=== PATIENT | male | born 1945 | race Caucasian/White ===

== ENCOUNTER 2020-03-20 14:03 | Outpatient (CLI) | payer MEDICARE, SELFPAY ==
--- NOTE | 2020-03-20 14:14 | US_ITS ---
WS: [id number] TESTICULAR ULTRASOUND HISTORY: HYDROCELE COMPARISON: None available. TECHNIQUE: Real-time and color Doppler imaging or utilized to perform a testicular ultrasound. Right testicle: 4.3 cm x 3.1 cm x 2.2 cm. Normal size and echogenicity. No mass or torsion. Normal color Doppler is present throughout. Systolic and diastolic velocities are both present. Small minimally complex hydrocele. Right epididymis: Epididymis is very mildly prominent. Left testicle: 4.1 cm x 3.0 cm x 2.9 cm. Normal size and echogenicity. No mass or torsion. Normal color Doppler is present throughout. Systolic and diastolic velocities are both present. Small minimally complex hydrocele. There are a few septations within the hydrocele. Left epididymis: Small spermatocele. US/US scrotum [id number] IMPRESSION: 1. Small minimally complex bilateral hydrocele. 2. No testicular mass or torsion. 3. Mildly prominent RIGHT epididymis without increased vascularity.
== END 2020-03-20 14:04 | disposition home or self-care (01) ==
LOC: RAD 14:08
PROVIDERS: Family Provider Family Medicine; Visit Provider Family Medicine
DX: N43.3 Hydrocele, unspecified (principal)
CPT/HCPCS: 76870

== ENCOUNTER → 2020-03-23 10:55 | Outpatient (BNVA) | payer MEDICARE, SELFPAY | PROVIDERS: Family Provider Family Medicine; Visit Provider Urology | DX: N40.0 Benign prostatic hyperplasia without lower urinary tract symptoms (principal); N45.1 Epididymitis; N43.3 Hydrocele, unspecified | CPT/HCPCS: 81001 ==

== ENCOUNTER → 2020-04-06 08:11 | Outpatient (BNVA) | payer MEDICARE, SELFPAY | PROVIDERS: Family Provider Family Medicine; PCP Family Medicine; Visit Provider Urology | DX: N45.1 Epididymitis (principal); N30.80 Other cystitis without hematuria; N43.3 Hydrocele, unspecified | CPT/HCPCS: 81001 ==

== ENCOUNTER → 2020-07-11 14:54 | Outpatient (BNVA) | payer MEDICARE, SELFPAY | PROVIDERS: Family Provider Family Medicine; PCP Family Medicine; Visit Provider Urology | DX: N45.1 Epididymitis (principal); N43.3 Hydrocele, unspecified; N50.82 Scrotal pain | CPT/HCPCS: 81001 ==

== ENCOUNTER → 2020-07-27 11:04 | Outpatient (BNVA) | payer MEDICARE, SELFPAY | PROVIDERS: Family Provider Family Medicine; PCP Family Medicine; Visit Provider Urology | DX: N45.1 Epididymitis (principal); N43.3 Hydrocele, unspecified; N50.82 Scrotal pain | CPT/HCPCS: 81001 ==

== ENCOUNTER → 2020-09-21 10:08 | Outpatient (BNVA) | payer MEDICARE, SELFPAY | PROVIDERS: Family Provider Family Medicine; PCP Family Medicine; Visit Provider Urology | DX: N45.1 Epididymitis (principal); N40.0 Benign prostatic hyperplasia without lower urinary tract symptoms; N40.1 Benign prostatic hyperplasia with lower urinary tract symptoms; N43.3 Hydrocele, unspecified; N50.82 Scrotal pain; Z12.5 Encounter for screening for malignant neoplasm of prostate | CPT/HCPCS: 81003; G0103 ==

== ENCOUNTER → 2020-10-30 08:21 | Outpatient (BNVA) | payer MEDICARE, SELFPAY | PROVIDERS: Family Provider Family Medicine; PCP Family Medicine; Visit Provider Urology | DX: N40.1 Benign prostatic hyperplasia with lower urinary tract symptoms (principal); K40.90 Unilateral inguinal hernia, without obstruction or gangrene, not specified as recurrent; N43.3 Hydrocele, unspecified | CPT/HCPCS: 81003 ==

== ENCOUNTER 2020-11-02 08:41 | Outpatient (CLI) | payer MEDICARE, SELFPAY | END 2020-11-02 08:42 | disposition home or self-care (01) | PROVIDERS: PCP Family Medicine; Visit Provider Urology | DX: Z01.818 Encounter for other preprocedural examination (principal) | CPT/HCPCS: 93005 ==

== ENCOUNTER → 2020-11-02 10:00 | Outpatient (BNVA) | payer MEDICARE, SELFPAY | PROVIDERS: PCP Family Medicine; Visit Provider Urology | DX: N40.1 Benign prostatic hyperplasia with lower urinary tract symptoms (principal) | CPT/HCPCS: 87635 ==

== ENCOUNTER 2020-11-08 14:28 | Observation (INO) | payer MEDICARE, SELFPAY ==
[2020-11-02 08:54] VITALS: BMI 27.8
--- NOTE | 2020-11-02 09:03 | ECG_ITS ---
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 Measurements Intervals [place] Rate: 68 P: 24 MT: 188 QRS: -18 QRSD: 117 T: 66 QT: 407 QTc: 433 Interpretive Statements SINUS RHYTHM INCOMPLETE RIGHT BUNDLE BRANCH BLOCK [90+ ms QRS DURATION, TERMINAL R IN V1/V2, 40+ ms S IN I/aVL/V4/V5/V6] No previous ECG available for comparison Electronically Signed On 11-02-2020 19:15:41 MEDICAID COLLECTION SPECIALIST by Mae Vincent M.D. [id number]
[2020-11-02 09:30] LABS: Basophils % 0.6 %; Eosinophils # 0.1 10^3/uL (0.0-0.8); Eosinophils % 1.7 %; Hematocrit 41.5 % (42.0-52.0); Hemoglobin 13.4 g/dL (11.7-16.6); Lymphocytes # 1.6 10^3/uL (0.8-4.8); Lymphocytes % 22.6 %; Mean Corpuscular HGB Conc 32.3 g/dL (30.0-36.0); Mean Corpuscular Hemoglobin 29.2 pg (28.0-34.0); Mean Corpuscular Volume 90.4 fL (80-94); Monocytes # 0.4 10^3/uL (0.2-0.9); Monocytes % 5.7 %; Neutrophils # 4.75 10^3/uL (1.8-7.7); Neutrophils % 69.1 %; Nucleated Red Blood Cells % 0 %; Platelet Count 228 10^3/cmm (130-400); Red Blood Count 4.59 10^6/uL (4.1-5.3); Red Cell Distribution Width 13.5 % (12.1-15.1); White Blood Count 6.9 10^3/uL (4.0-10.0)
--- NOTE | 2020-11-02 09:35 | ANES.PREANE2 ---
Pre-Anesthetic Assessment Pre-Anesthetic Assessment: Height/Weight: Height 1.96 m Weight 106.594 kg Preop Diagnosis: Benign large prostate. BPH with obstruction Proposed Procedure: Operation Date: 11/08/20 12:00 Proposed Procedures p Transurethral Resection Of Prostate/ Vaporization of prostate 48000 N40.1(Not Applicable) - Denilson Agrawal MD s Cystoscopy(Not Applicable) - Denilson Agrawal MD Familial anesthetic complications: None Social: Social History: No alcohol and No tobacco Exam: Pre-Anes Outpt Exam: alert, oriented x 3, clear to auscultation bilaterally and regular rate & rhythm Airway: Cervical ROM: WNL MP: 1 Dentition: Other (missing teeth) CV/HEM: CV/HEM: HTN : Comments: L renal cancer s/p removal Metabolic: Metabolic: Hyperlipidemia Anesthetic Plan: ASA status: 2 Anesthesia: General Risk of > 500 ml blood loss (7ml/kg in children): No PFSH Anesthesia PFSH: Medical History (Updated 10/30/20 @ 08:49 by Denilson Agrawal MD) BPH (benign prostatic hyperplasia) Epididymitis HTN (hypertension) Hx of renal cell cancer Hyperlipidemia Left hydrocele Right inguinal hernia Surgical History History of left nephrectomy Hx of shoulder replacement Family History Mother , at age 86 Cancer ovarian cancer Father , at age 52 Heart attack Social History Smoking and tobacco status: never smoked Alcohol intake: unknown Adopted: No Caregiver/support person: No Lives independently: No Household members: spouse Marital status: Current occupational status: retired History of recent travel: No Data Anesthesia CBC & Chem 7: 11/02/20 09:07 11/02/20 09:07 Other Labs: Laboratory Results - last 48 hr 11/02/20 09:07 WBC 6.9 RBC 4.59 Hgb 13.4 Hct 41.5 L MCV 90.4 MCH 29.2 MCHC 32.3 RDW 13.5 Plt Count 228 MPV 10.0 Neut % (Auto) 69.1 Lymph % (Auto) 22.6 [place] % (Auto) 5.7 Eos % (Auto) 1.7 Baso % (Auto) 0.6 Neut # (Auto) 4.75 Lymph # (Auto) 1.6 [place] # (Auto) 0.4 Eos # (Auto) 0.1 Baso # (Auto) 0.0 Nucleated RBC % (auto) 0 Nucleated RBCs # 0.0 Cardiac Studies: No Data to Display
[2020-11-02 09:48] LABS: Alanine Aminotransferase 21 U/L (0-41); Albumin Level 3.7 g/dL (3.5-5.2); Alkaline Phosphatase 82 IU/L (40-130); Anion Gap 10.1 (5-19); Aspartate Amino Transferase 20 U/L (0-40); Blood Urea Nitrogen 18 mg/dL (8-23); Calcium 8.9 mg/dL (8.5-10.5); Carbon Dioxide 30 mmol/L (22-29); Chloride 103 mmol/L (98-107); Globulin 2.8 g/dL (1.3-4.6); Glucose 97 mg/dL (65-115); Osmolality Calculated 290 mOsm/kg (285-295); Potassium 4.1 mmol/L (3.5-5.1); Sodium 139 mmol/L (136-145); Total Bilirubin 0.4 mg/dL (0.15-1.2); Total Protein 6.5 g/dL (6.6-8.7)
[2020-11-08] VITALS (15 sets, daily range): BP systolic 126–171; BP diastolic 69–91; PULSE 60–88; RESP 16–18; TEMP 35.7–37; O2SAT 91–99
[2020-11-08] MEDS: sodium chloride 0.9% 1,000 ML 30 ML IV (11:01)
--- NOTE | 2020-11-08 12:24 | P.HPUD_ITS ---
Surgery/Procedure H&P Update DATE OF PROCEDURE: November 08, 2020 DATE H&P PERFORMED: 10/30/20 H&P UPDATE INFORMATION: I have reviewed H&P completed within last 30 days, I have examined patient prior to procedure, No changes to prior documentation and H&P is in [facility] EMR on date indicated CHANGES TO PREVIOUS DOCUMENTATION: I had an opportunity to review the procedure in detail with his who is very attentive to such detail. She seemed c ontent with my explanation and answers. PREOP DIAGNOSIS: Benign large prostate. BPH with obstruction PLANNED PROCEDURE: Operation Date: 11/08/20 12:00 Proposed Procedures p Transurethral Resection Of Prostate/ Vaporization of prostate 44917 N40.1(Not Applicable) - Denilson Agrawal MD s Cystoscopy(Not Applicable) - Denilson Agrawal MD
[2020-11-08] MEDS: levofloxacin-dextrose 5 % 500 MG/100 ML PREMIX 100 MG IV (12:25)
--- NOTE | 2020-11-08 12:30 | P.ANESUD_ITS ---
Pre-Anesthetic Update Pre-Anesthetic Assessment: Date of Surgery/Procedure: 11/08/20 Preop Sapphire gnosis: Benign large prostate. BPH with obstruction Proposed Procedure: Operation Date: 11/08/20 12:00 Proposed Procedures p Transurethral Resection Of Prostate/ Vaporization of prostate 67670 N40.1(Not Applicable) - Denilson Agrawal MD s Cystoscopy(Not Applicable) - Denilson Agrawal MD Any changes to Pre-Anesthetic Assessment?: No Last Intake: Intake Last Liquid Date 11/07/20 Last Liquid Time 20:00 Last Solid Date 11/07/20 Last Solid Time 20:00 Vitals: Temperature 97.4 F L 11/08/20 10:48 Temperature Source Temporal Artery S can 11/08/20 10:48 Pulse Rate 62 11/08/20 10:48 Pulse Rhythm 11/08/20 10:52 Pulse Strength 3+ Normal 11/08/20 10:52 Respiratory Rate 18 11/08/20 10:48 Blood Pressure 171/91 11/08/20 10:48 Blood Pressure Dorothy n 117 11/08/20 10:48 Pulse Oximetry 99 11/08/20 10:48 Oxygen Delivery Me thod 11/08/20 10:52 Exam: Pre-Anes Outpt Exam: alert, oriented x 3, clear to auscultation bilate rally and regular rate & rhythm Cardiac Studies: No Data to Display
[2020-11-08] MEDS: lidocaine 2% Urojet 20 mL (12:53)
--- NOTE | 2020-11-08 14:07 | PM.OP ---
Operative Report Date of procedure: November 08, 2020 Pre-op Diagnosis: Benign large prostate. BPH with obstruction Post-op diagnosis: same Procedure Done: Cystoscopy, and transurethral resection/vaporization of the prostate Pathology: Patient Service Representative prostate chips Surgeon: Tanja Anesthesia: General Estimated blood loss: Less than 50 cc Urine output: Not measured Complications: None Findings: Primarily lateral lobe hypertrophy with moderate trabeculated bladder. Orifices well away from the bladder neck. Wide open at the completion of the procedure with excellent hemostasis. Condition: stable Disposition: PACU Brief History: Mr. Forrester is a delightful 75-year-old white male with a longstanding history of progressive bladder outlet obstructive symptoms. Persisted with near retention while on medical therapy. Ultimately chose transurethral resection/vaporization of the prostate with hopes of improving his baseline voiding and getting off the medication (tamsulosin). Admitted for that procedure. Procedure: After routine preoperative evaluation examination and obtaining of informed consent he was taken to the operating suite on 11/08/2020 where general anesthesia was administered without difficulty after appropriate timeout was performed, SCDs confirmed to be functioning, preoperative antibiotics administered, beta-theodore protocol confirmed. Prepped and draped in usual sterile fashion in dorsolithotomy position paying careful attention to avoiding pressure points. 21 Armenian cystoscope with 30 degree lens was introduced into the urethral meatus and advanced into the bladder under videoscopy. Bladder was systematically examined and found to be within normal limits regarding mucosa. He did showed bilateral lateral lobe hypertrophy without a significant amount of median lobe tissue. Bladder was moderately trabeculated. Orifices were well away from the bladder neck. Verumontanum was easily identified. The urethra was then calibrated with Kris sounds and easily accommodated 30 Armenian. 2% lidocaine jelly was instilled into the urethra then a 25 Armenian continuous-flow resectoscope sheath with visual obturator in place was advanced into the bladder without difficulty. The gyrus bipolar system was utilized initially with the supersect loop. Landmarks were again ascertained. Resection was begun at the bladder neck and circumferentially performed removing what intravesical protrusion of the prostate existed. The left lateral lobe was then resected from the 12 o'clock position to the 5 o'clock position from the bladder neck to the distal aspect of the prostate at the level of the verumontanum. The resection was conducted deeply into the prostate tissue. Hemostasis was obtained with resection. Resection was then directed from the 12 o'clock position to the 7 o'clock position of the same longitudinal extent and depth. The floor the prostate was then resected. The button probe was then utilized to complete the removal of tissue by vaporization technique. At least 50% of the prostatic tissue was vaporized. There remains some apical tissue at the level of the verumontanum and this was carefully vaporized avoiding straining distal to the verumontanum. All chips were evacuated from the bladder. The prostate was further sculpted as needed to allow smooth widely patent fossa. On final inspection all chips were removed from the bladder, the ureteral orifices were uninvolved in the resection, and the tissue distal to the verumontanum was undisturbed. Bladder was drained with a 20 Armenian three-way Wheat catheter with 30 cc in the balloon and light CBI was initiated with very low flow to maintain clarity. Tolerated the procedure well without complications. Awakened in the operating room and returned to the recovery in stable condition. PLANS: 1. Anticipate discharge tomorrow after voiding trial. Catheter placement as needed. 2. Should be able to wean CBI off today.
--- NOTE | 2020-11-08 14:19 | SUR.PHASEI ---
PT AWAKE ALERT ON ARRIVAL, GOOD RESP EFFORT VSS MUHAMMAD TO CBI AT MOD RATE AND YELLOW CLEAR URINE NOTED IN TUBING AND BAG, BILAT SCDS ON PT . PT VERBALLY DENIES PAIN AND NAUSEA,
[2020-11-08] MEDS: acetaminophen 325 mg Tablet 650 MG PO (15:41)
[2020-11-08] MEDS: gabapentin 300 mg Capsule PO ×2 (15:42→20:32)
[2020-11-08] MEDS: D5-NS 0.45% + KCL 20 mEq 20 MEQ/1,000 ML BAG 50 MEQ IV (15:47)
--- NOTE | 2020-11-08 16:22 | ANE.PACU2 ---
Inpatient post-anesthesia follow up: Airway intact: Yes Vital signs: Temperature 96.7 F Pulse Rate 67 Respiratory Rate 16 Blood Pressure 170/84 Pulse Oximetry 91 Oxygen Delivery Me thod [ Room Air Current Rate & Del humberto] Oxygen Delivery Me thod Room Air Oxygen Flow Rate 8 Fraction of Inspir ed Oxygen Hydration adequate: Yes Nausea and vomiting: No Pain level: 2 Mental status: Baseline
[2020-11-08] MEDS: docusate sodium 100 mg Capsule PO (17:07)
[2020-11-08] MEDS: lisinopril 10 mg Tablet PO (17:08)
[2020-11-09 04:00] VITALS: BP 151/79; PULSE 63; RESP 18; TEMP 36.6; O2SAT 94
[2020-11-09] MEDS: levoFLOXacin 500 mg Tablet PO (06:15)
[2020-11-09 07:03] VITALS: BP 143/77; PULSE 67; RESP 20; TEMP 36.9; O2SAT 93
--- NOTE | 2020-11-09 07:32 | PC.NURSE ---
Report to Maureen RUBIO
--- NOTE | 2020-11-09 07:41 | P.DS_ITS ---
Discharge Providers Date of Admission: 11/08/20 14:28 Date of Discharge: November 09, 2020 Attending Provider at Admission: Denilson Agrawal MD Attending Provider at Discharge: Denilson Agrawal MD Primary Care Provider: Shekhar Salazar Jr, MD Diagnoses at Discharge Discharge Diagnosis (1) BPH loc w urin obs/LUTS: Status: Acute (2) Postoperative urinary retention: Status: Acute Reason for Visit Reason for Visit: Benign prostatic hyperplasia N40.1 Hospital Course Hospital Course Mr. Forrester was admitted for refractory BPH/obstruction on dual medical therapy. Surgery was performed on the day of admission which went very well. His postoperative course was unremarkable. He was maintained on very light CBI immediately postop but that was weaned off quickly. On postoperative day #1 the Wheat catheter was removed and he voided spontaneously with clearing urine initially but with declining output over the morning. In and out catheter was performed a couple times with large postvoid residuals and for that reason a Wheat catheter was replaced. Was discharged on the afternoon of postoperative day #1 with Wheat catheter in place draining clear urine. Scheduled for voiding trial in my office on 11/13/2020 or 11/14/2020. Explained drainage bag management. He was instructed to call if he had any concerns or questions postoperatively. Physical Exam Const: COMMON NORMALS: no acute distress, alert and well nourished GENERAL APPEARANCE: well kempt and well developed ORIENTATION/CONSCIOUSNESS: not confused Neck/C-Spine: COMMON NORMALS: full ROM Resp: COMMON NORMALS: normal respiratory effort EFFORT & INSPECTION: No labored and No Actively coughing : OTHER: Urine clear yellow with CBI off. Neuro: COMMON NORMALS: no focal motor deficits SENSORIUM/ORIENTATION: Yes alert Psych: COMMON NORMALS: mental status grossly normal APPEARANCE: Yes grossly normal and Yes well kempt ATTITUDE: Yes calm and Yes engaged Urinary Catheter Management^: 3-way Urethral CBI: Cath Placed During This Visit: yes Reason for Continuing Indwelling Catheter: Acute Urinary Retention or Obstruction Urinary Catheter Date of Insertion: 11/08/20 Urinary Catheter Time of Insertion: 13:57 Discharge Data Data Completed and Pending: Pending at discharge Category Date Time Status Pathology: Surgic al [PTH] Routine Pth 11/08/20 13:56 Ordered Vitals: Last Vital Signs Temp 98.4 F 11/09/20 07:03 Pulse 67 11/09/20 07:03 Resp 20 H 11/09/20 07:03 BP 143/77 11/09/20 07:03 Pulse Ox 93 11/09/20 07:03 Discharge Plan Discharge Patient Disposition: Home Condition: Stable Prescriptions: New levofloxacin 250 mg tablet 250 mg PO DAILY Qty: 5 RF: 0 Continued atorvastatin 80 mg tablet 80 mg PO DAILY RF: 0 finasteride 5 mg tablet 5 mg PO DAILY RF: 0 gabapentin 300 mg capsule 300 mg PO TID RF: 0 lisinopril 10 mg tablet 10 mg PO BID RF: 0 cabozantinib 20 mg tablet 20 mg PO DAILY RF: 0 tamsulosin 0.4 mg capsule 0.4 mg PO .2 at bedtime RF: 0 prednisolone 5 mg tablet 5 mg PO BID RF: 0 calcium phosphate-vitamin D3 250 mg calcium- 350 unit tablet,chewable 1 tab PO DAILY RF: 0 Discontinued dutasteride [Avodart] 0.5 mg capsule 0.5 mg PO DAILY RF: 0 Discharge Orders: Discharge Order (Routine); Ordered 11/09/20 Ordered By: Denilson Agrawal Referrals: Denilson Agrawal MD [Physician] - 12/24/20 8:00 am (Postop check. Flow rate, PVR, AUA symptom score.) Discharge Diet: Usual diet Discharge Activity: Limit activity as instructed Patient Instructions: Levofloxacin (By mouth), TURP Activity Restrictions/Additional Instructions: 1. Avoid lifting >10 pounds for least 3 weeks. 2. Can take [id number] AZO-STANDARD as needed for burning. 3. Please call if you have any concerns or questions. The hospital computer numerical control operator can reach me after hours if there are any concerns. Discharge Attestations Time Spent in Discharge Care*: less than 30 min Quality Metrics Clinical Quality Measures During this hospital stay, did patient experience: None Coding Level of Care Code Acute Business Area Director for Chg Fwd Exam Detailed Diagnoses BPH loc w urin obs/LUTS N40.1 Postoperative urinary retention N99.89; R33.8
[2020-11-09] MEDS: atorvastatin 40 mg Tablet 80 MG PO (10:10)
[2020-11-09] MEDS: finasteride 5 mg Tablet PO (10:10)
[2020-11-09] MEDS: docusate sodium 100 mg Capsule PO (10:10)
[2020-11-09] MEDS: gabapentin 300 mg Capsule PO ×2 (10:11→16:20)
[2020-11-09] MEDS: lisinopril 10 mg Tablet PO (10:12)
[2020-11-09 11:07] VITALS: BP 190/92; PULSE 74; RESP 18; TEMP 37.1; O2SAT 97
[2020-11-09] MEDS: D5-NS 0.45% + KCL 20 mEq 20 MEQ/1,000 ML BAG 50 MEQ IV (11:07)
--- NOTE | 2020-11-09 12:59 | PC.CHAP ---
Pastoral Care Encounter/Spiritual Assessment Type of Contact [] Declined decorative cutting machine tender visit [] Patient/Family/Request visit [] Outpatient visit [] Follow-up visit [] Physician referral [] Code/Alert [] Routine visit [] Staff referral [] Actively dying [] Patient sleeping [] Family support [] [] Out of room [] Palliative care [] [xx] Receiving care in room [] Pre-surgical visit [] Trauma [] Long length of stay [] ICU visit [xx] Other: Follow up needed Relational/Emotional Strength [] Patient feels connected with others/family/visitors/staff [] Distress [] Loneliness/isolation [] Abandonment Spirituality of Patient [] Person of Diana [] Attends Mosque of their Diana [] Believes in Prayer [] Reads Bible or Roman Catholic materials [] There are Spiritual issues to be addressed Fairground Operator Interventions [] Prayer [] Active listening [] Non-anxious presence [] Spiritual/emotional support [] Crisis/trauma care [] Spiritual counseling [] Bereavement support [] Provided bereavement packet [] Provided Bible/devotional materials [] Provided toy/stuffed animal, coloring book to patient or family member [] Provided Communion [] Anointing/[place] [] Salvation [] Completed spiritual assessment [] Other: Impact on Illness or Injury [] Angry [] Fearful [] Anxious [] Often cries [] Exhaustion [] Unable to work [] Unable to attend evangelical [] Unable to walk/stand [] Unable to read [] Unable to drive [] Unable to eat/drink [] Unable to sleep [] Unable to be with family [] Patient intubated [] Other: Summary Patient involved in medical treatments that would keep him busy for some time. Fairground Operator attempted visit at beginning and ending of round but could not follow through. Recommend further follow up. Time spent with patient 4 minutes total
[2020-11-09 13:33] VITALS: PULSE 68; O2SAT 97
[2020-11-09 16:00] VITALS: BP 172/86; PULSE 82; RESP 18; TEMP 37.6; O2SAT 92
--- NOTE | 2020-11-09 17:10 | PC.NURSE ---
IV d/c'd, cath intact. bleeding was controlled with 2x2 and coban. patient and were educated on leg and bed bag for velásquez. discharge instructions were discussed with , Mrs. Forrester verbalized understanding. patient and were escorted out of the building and into a private vehicle into the care of the .
[2020-11-09 17:15] VITALS: BP 172/86; PULSE 82; RESP 18; TEMP 37.6; O2SAT 92
== END 2020-11-09 16:30 | disposition home or self-care (01) ==
LOC: MEDSURG 14:29
PROVIDERS: Admitting Provider Urology; PCP Family Medicine; Visit Provider Urology
PROC: 0VT08ZZ Resection of Prostate, Via Natural or Artificial Opening Endoscopic (ICD-10-PCS; CPT 52601; principal; 2020-11-08 12:00)
PROC: 0TJB8ZZ Inspection of Bladder, Via Natural or Artificial Opening Endoscopic (ICD-10-PCS; CPT 52000; 2020-11-08 12:00)
DX: N40.1 Benign prostatic hyperplasia with lower urinary tract symptoms (principal); N13.8 Other obstructive and reflux uropathy; R33.8 Other retention of urine; I10 Essential (primary) hypertension; E78.5 Hyperlipidemia, unspecified; Z85.528 Personal history of other malignant neoplasm of kidney; Z90.5 Acquired absence of kidney
CPT/HCPCS: 52601; 12345; 36415; 51702; 51798; 80053; 85025; 88305; G0378; J1956; J2405; J2704; J2710; J3010; J3490; J7030

== ENCOUNTER → 2020-12-26 13:47 | Outpatient (BNVA) | payer MEDICARE, SELFPAY | PROVIDERS: PCP Internal Medicine; Visit Provider Urology | DX: N40.1 Benign prostatic hyperplasia with lower urinary tract symptoms (principal); N43.3 Hydrocele, unspecified; R30.0 Dysuria; N39.41 Urge incontinence | CPT/HCPCS: 81003 ==

== ENCOUNTER → 2021-02-11 11:17 | Outpatient (BNVA) | payer MEDICARE, SELFPAY | PROVIDERS: PCP Internal Medicine; Visit Provider Urology | DX: N40.1 Benign prostatic hyperplasia with lower urinary tract symptoms (principal) | CPT/HCPCS: 81003 ==

== ENCOUNTER 2021-08-01 06:00 | Outpatient (RCR) | payer MEDICARE, SELFPAY | END 2021-08-11 23:59 | disposition home or self-care (01) | LOC: MPT 06:00 | PROVIDERS: PCP Internal Medicine; Referring Provider Physician Assistant Surgical; Visit Provider Physician Assistant Surgical | DX: Z47.1 Aftercare following joint replacement surgery (principal); Z96.641 Presence of right artificial hip joint | CPT/HCPCS: 97110; 97116; 97162 ==

== ENCOUNTER 2021-08-12 06:00 | Outpatient (RCR) | payer MEDICARE, SELFPAY | END 2021-09-10 23:59 | disposition home or self-care (01) | LOC: MOT 06:00 | PROVIDERS: PCP Internal Medicine; Visit Provider Physician Assistant Surgical | DX: E78.5 Hyperlipidemia, unspecified (principal) | CPT/HCPCS: 97140; 97166 ==

== ENCOUNTER 2021-08-12 06:00 | Outpatient (RCR) | payer MEDICARE, SELFPAY | END 2021-09-10 23:59 | disposition home or self-care (01) | LOC: MPT 06:00 | PROVIDERS: PCP Internal Medicine; Referring Provider Physician Assistant Surgical; Visit Provider Physician Assistant Surgical | DX: Z47.1 Aftercare following joint replacement surgery (principal); Z96.641 Presence of right artificial hip joint | CPT/HCPCS: 97110; 97112; 97116 ==

== ENCOUNTER → 2021-08-14 10:26 | Outpatient (BNVA) | payer MEDICARE, SELFPAY | PROVIDERS: PCP Internal Medicine; Visit Provider Urology | DX: N40.1 Benign prostatic hyperplasia with lower urinary tract symptoms (principal); N43.3 Hydrocele, unspecified | CPT/HCPCS: 81003 ==

== ENCOUNTER 2021-09-11 08:38 | Outpatient (RCR) | payer MEDICARE, SELFPAY | END 2021-10-11 23:59 | disposition home or self-care (01) | LOC: MPT 08:38 | PROVIDERS: PCP Internal Medicine; Referring Provider Physician Assistant Surgical; Visit Provider Physician Assistant Surgical | DX: E78.5 Hyperlipidemia, unspecified (principal) | CPT/HCPCS: 97110; 97112; 97116 ==

== ENCOUNTER 2021-10-12 06:00 | Outpatient (RCR) | payer MEDICARE, SELFPAY | END 2021-11-11 23:59 | disposition home or self-care (01) | LOC: MPT 06:00 | PROVIDERS: PCP Internal Medicine; Referring Provider Physician Assistant Surgical; Visit Provider Physician Assistant Surgical | DX: E78.5 Hyperlipidemia, unspecified (principal) | CPT/HCPCS: 97110; 97112 ==

== ENCOUNTER 2021-11-12 06:00 | Outpatient (RCR) | payer MEDICARE, SELFPAY | END 2021-12-09 23:59 | disposition home or self-care (01) | LOC: MPT 06:00 | PROVIDERS: PCP Internal Medicine; Referring Provider Physician Assistant Surgical; Visit Provider Physician Assistant Surgical | DX: E78.5 Hyperlipidemia, unspecified (principal) | CPT/HCPCS: 97110 ==

== ENCOUNTER 2023-02-06 09:11 | Oncology outpatient (recurring) (ONCR) | payer MEDICARE, SELFPAY ==
--- NOTE | 2023-01-12 14:23 | N.ONRAD NP_ITS ---
Radiation Oncology Consultation Patient Name: Sameer Forrester Date of : 1945 Date of Service: 01/12/2023 Attending Physician: Joss Love M.D. Sameer Forrester was seen in consultation this morning at the request of [facility] in [place], [place] for consideration of palliative radiotherapy in the management of metastatic renal cell carcinoma. 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 Thoracic metastatic disease was radiographically identified and confirmed following an 11R lymph node biopsy in October 2017. He was enrolled on Checkmate 9ER trial. In January of 2022, he reported progressive back pain. A thoracic and lumbar spine MRI identified a T12 lesion. A radiofrequency ablation with vertebral augmentation was performed for tissue diagnosis. Metastatic renal cell carcinoma was confirmed. A lumbar MRI scan obtained in November described new enhancing lesion within the L2 vertebral body. He reported right thigh pain. A radiograph the right femur described an eccentric lytic lesion with cortical destruction in the mid diaphysis measuring 6.8 cm x 2.5 cm. An open reduction internal fixation was performed by Royer Jackson M.D. at [facility] on December 10, 2022. Bone and soft tissue submitted from the procedure was consistent with metastatic renal cell carcinoma. He was referred for palliative radiotherapy. I discussed with Mr. Forrester the role for palliative radiation in the context of metastatic disease. I would recommend a 1-week course of radiation therapy. A CT scan will be acquired for radiotherapy planning prior to beginning treatment to delineate the clinical target volume. The potential toxicities of radiotherapy were reviewed. The patient has verbalized understanding would like to proceed as recommended. Signed by: Joss Love 01/12/2023 2:29:01 PM
--- NOTE | 2023-01-15 | CT_ITS ---
Radiation Therapy Planning CT images; total exam DLP: 1229.74 mGy-cm MTDD
--- NOTE | 2023-01-23 09:36 | N.ONRD TS_ITS ---
Radiation OncologyTreatment Summary Patient Name: Sameer Forrester Date of : 1945 Date of Service: 01/23/2023 Attending Physician: Joss Love M.D. Sameer Forrester has completed palliative radiotherapy for the management of metastatic renal cell carcinoma. 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 Thoracic metastatic disease was radiographically identified and confirmed following an 11R lymph node biopsy in October 2017. He was enrolled on Checkmate 9 trial. In January of 2022, he reported progressive back pain. A thoracic and lumbar spine MRI identified a T12 lesion. A radiofrequency ablation with vertebral augmentation was performed for tissue diagnosis. Metastatic renal cell carcinoma was confirmed. A lumbar MRI scan obtained in November described new enhancing lesion within the L2 vertebral body. He reported right thigh pain. A radiograph the right femur described an eccentric lytic lesion with cortical destruction in the mid diaphysis measuring 6.8 cm x 2.5 cm. An open reduction internal fixation was performed by Royer Jackson M.D. at [facility] on December 10, 2022. Bone and soft tissue submitted from the procedure was consistent with metastatic renal cell carcinoma. Daily radiotherapy was administered between the dates January 19, 2023 through January 23, 2023. A prescribed dose of 20 Gy was delivered in 5 fractions encompassing 5 elapsed days. The right femur was treated utilizing a 3-dimensional conformal radiotherapy plan with an AP/PA field design. The AP port utilized a gantry angle of 0??? with a collimator rotation of 0???. The field size measured 4.5 cm x 4.5 cm within the X-direction and 18.5 cm 18.5 cm within the Y-direction. The SSD measured 93.7 cm. The port delivered 234 monitor units. The A field was designed with a gantry angle of 180??? and a collimator rotation of 0???. The field measured 4.5 cm x 4.5 cm within the X-direction of 18.5 cm x 18.5 cm within the Y-direction. The measured SSD was 91.2 cm. The field allocated 253 monitor units. All treatments were performed with the Zopa linear accelerator and an isocentric technique. The dose was calculated by Anisotropic Analytic Algorithm. A photon energy of 6 MV was prescribed with the plan normalized to deliver 100% of the prescription dose to 95% of the planning target volume. Signed by: Joss Love 01/23/2023 9:35:17 AM
--- NOTE | 2023-01-23 09:54 | ONCRAD TMN_ITS ---
Radiation Oncology Treatment Management Note Patient Name: Sameer Forrester Date of : 1945 Date of Service: 01/23/2023 Attending Physician: Joss Love M.D. Sameer Forrester is a 77 year-old white male of diagnosed with metastatic renal cell carcinoma. 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 Thoracic metastatic disease was radiographically identified and confirmed following an 11R lymph node biopsy in October 2017. He was enrolled on Checkmate 9ER trial. In January of 2022, he reported progressive back pain. A thoracic and lumbar spine MRI identified a T12 lesion. A radiofrequency ablation with vertebral augmentation was performed for tissue diagnosis. Metastatic renal cell carcinoma was confirmed. A lumbar MRI scan obtained in November described a new enhancing lesion within the L2 vertebral body. He reported right thigh pain. A radiograph the right femur described an eccentric lytic lesion with cortical destruction in the mid diaphysis measuring 6.8 cm x 2.5 cm. An open reduction internal fixation was performed by Royer Jackson M.D. at [facility] on December 10, 2022. Bone and soft tissue submitted from the procedure was consistent with metastatic renal cell carcinoma. The patient has received 20 Gy of a prescribed 20 [place] to the right femur with a 3-dimensional conformal radiotherapy plan utilizing AP/PA treatment wiggins. Upon review of systems, he described back pain. On physical examination, the patient weighed 216 lbs. His temperature was 96.3 ???F and the blood pressure was 136/71 mmHg. His pulse was 73 bpm and his respiratory rate was 18. Palliative radiotherapy concluded today. Signed by: Joss Love 01/23/2023 9:53:02 AM
--- NOTE | 2023-01-27 | CT_ITS ---
Radiation Therapy Planning CT images; total exam DLP: 1000.34 mGy-cm MTDD
--- NOTE | 2023-02-06 09:16 | N.ONRD TS_ITS ---
Radiation OncologyTreatment Summary Patient Name: Sameer Forrester Date of : 1945 Date of Service: 02/06/2023 Attending Physician: Joss Love M.D. Sameer Forrester has completed palliative radiotherapy for the management of metastatic renal cell carcinoma. 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 Thoracic metastatic disease was radiographically identified and confirmed following an 11R lymph node biopsy in October 2017. He was enrolled on Checkmate 9 trial. In January of 2022, he reported progressive back pain. A thoracic MRI identified a T12 lesion. A radiofrequency ablation with vertebral augmentation was performed for tissue diagnosis. Metastatic renal cell carcinoma was confirmed. A lumbar MRI scan obtained in November described a new enhancing lesion within the L2 vertebral body. He reported right thigh pain. A radiograph the right femur described an eccentric lytic lesion with cortical destruction in the mid diaphysis measuring 6.8 cm x 2.5 cm. An open reduction internal fixation was performed by Royer Jackson M.D. at [facility] on December 10, 2022. Bone and soft tissue submitted from the procedure was consistent with metastatic renal cell carcinoma. Daily radiotherapy was administered between the dates of February 02, 2023 through February 06, 2023. A prescribed dose of 20 Gy was delivered in 5 fractions encompassing 7 elapsed days. The L2 vertebral body was treated utilizing a 3-dimensional conformal radiotherapy plan with AP/PA wiggins and a right lateral port. The AP field utilized a 0??? gantry angle with a collimator angle of 0???. The field size measured 5 cm x 5 cm within the X-direction and 5 cm x 5 cm within the Y-direction. The SSD measured 82.3 cm with the field delivering 227 monitor units. The PA port employed a gantry angle of 180??? and a collimator angle of 0???. The field size spanned 5 cm x 5 cm within X-direction and 5 cm x 5 cm within the Y-direction. The measured SSD was 92.7 cm with the field allocating 279 monitor units. All treatments were performed with the [employer] linear accelerator and an isocentric technique. The dose was calculated by Anisotropic Analytic Algorithm. A photon energy of 15 MV was prescribed with the plan normalized to deliver 100% of the prescription dose to 100% of the planning target volume. Signed by: Joss Love 02/06/2023 9:15:45 AM
--- NOTE | 2023-02-06 09:52 | ONCRAD TMN_ITS ---
Radiation Oncology Treatment Management Note Patient Name: Sameer Forrester Date of : 1945 Date of Service: 02/06/2023 Attending Physician: Joss Love M.D. Sameer Forrester is a 77 year-old white male of diagnosed with metastatic renal cell carcinoma. 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 Thoracic metastatic disease was radiographically identified and confirmed following an 11R lymph node biopsy in October 2017. He was enrolled on Checkmate 9ER trial. In January of 2022, he reported progressive back pain. A thoracic MRI identified a T12 lesion. A radiofrequency ablation with vertebral augmentation was performed for tissue diagnosis. Metastatic renal cell carcinoma was confirmed. A lumbar MRI scan obtained in November described a new enhancing lesion within the L2 vertebral body. He reported right thigh pain. A radiograph the right femur described an eccentric lytic lesion with cortical destruction in the mid diaphysis measuring 6.8 cm x 2.5 cm. An open reduction internal fixation was performed by Royer Jackson M.D. at [facility] on December 10, 2022. Bone and soft tissue submitted from the procedure was consistent with metastatic renal cell carcinoma. The patient has received 20 Gy of a prescribed 20 [place] to the L2 vertebral body with a 3-dimensional conformal radiotherapy plan utilizing AP/PA treatment wiggins. Upon review of systems, his pain has improved. On physical examination, the patient weighed 217 lbs. His temperature was 97.1 ???F and the blood pressure was 130/77 mmHg. His pulse was 60 bpm and his respiratory rate was 18. Palliative radiotherapy completed today. Signed by: Joss Love 02/06/2023 9:50:35 AM
== END 2023-02-08 23:59 | disposition home or self-care (01) ==
PROVIDERS: PCP Internal Medicine; Visit Provider Radiology Radiation Oncology
DX: Z51.0 Encounter for antineoplastic radiation therapy (principal); C64.1 Malignant neoplasm of right kidney, except renal pelvis; C79.51 Secondary malignant neoplasm of bone; Z87.891 Personal history of nicotine dependence
CPT/HCPCS: 77280; 77290; 77295; 77300; 77307; 77334; 77336; 77387; 77412; 99024; 99205

== ENCOUNTER 2023-02-10 13:03 | Oncology outpatient (recurring) (ONCR) | payer MEDICARE, SELFPAY ==
--- NOTE | 2023-02-10 | CT_ITS ---
Radiation Therapy Planning CT images; total exam DLP: 187.01 mGy-cm MTDD
--- NOTE | 2023-02-10 14:20 | N.ONRD TS_ITS ---
Radiation OncologyTreatment Summary Patient Name: Sameer Forrester Date of : 1945 Date of Service: 02/10/2023 Attending Physician: Joss Love M.D. Sameer Forrester has completed palliative radiotherapy for the metastatic renal cell carcinoma. 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 Thoracic metastatic disease was radiographically identified and confirmed following an 11R lymph node biopsy in October 2017. He was enrolled on Checkmate 9 trial. In January of 2022, he reported progressive back pain. A thoracic MRI identified a T12 lesion. A radiofrequency ablation with vertebral augmentation was performed for tissue diagnosis. Metastatic renal cell carcinoma was confirmed. A lumbar MRI scan obtained in November 2022 described a new enhancing lesion within the L2 vertebral body. He reported right thigh pain. A radiograph of the right femur ordered in November described an eccentric lytic lesion with cortical destruction in the mid diaphysis measuring 6.8 cm x 2.5 cm. An open reduction internal fixation was performed by Royer Jackson M.D. at [facility] on December 10, 2022. Bone and soft tissue submitted from the procedure was consistent with metastatic renal cell carcinoma. Daily radiotherapy was administered to the right femur between the dates January 19, 2023 through January 23, 2023. A prescribed dose of 20 Gy was delivered in 5 fractions encompassing 5 elapsed days. Radiotherapy was administered to the L2 vertebral body between the dates of February 02, 2023 through February 06, 2023. A prescribed dose of 20 Gy was delivered in 5 fractions encompassing 7 elapsed days. A right humerus and shoulder radiographs completed during a follow-up appointment with orthopedic oncology at [facility] on January 29, 2023 revealed interval enlargement of the lytic lesion within the right proximal humerus. Radiotherapy was administered on February 10, 2023. A prescribed dose of 8 Gy was delivered in one fraction encompassing 0 elapsed days. The right humerus was treated utilizing a 2-dimensional radiotherapy plan with an AP/PA portal field design with a [id number] treatment technique. The AP field utilized a 0??? gantry angle with a collimator angle of 322???. The field size measured 3.5 cm x 3.5 cm within the X-direction and 13 cm x 13 cm within the Y-direction. The SSD measured 96.2 cm with the field delivering 397 monitor units. Supplemental ports were designed with multi-leaf collimation that distributed 23 MU and 42 MU, respectively The PA port employed a gantry angle of 180??? and a collimator angle of 38???. The field size spanned 3.5 cm x 3.5 cm within the X-direction and 13 cm x 13 cm within the Y-direction. The SSD was 92.6 cm with the port administering 471 monitor units. An Auxiliary field with MLC was designed that apportioned 74 MU. All treatments were performed with the [employer] linear accelerator and an isocentric technique. The dose was calculated by Anisotropic Analytic Algorithm. Photon energies of 15 MV were prescribed with the plan normalized to deliver 100% of the prescription dose to 99% of the planning target volume. Signed by: Joss Love 02/10/2023 2:19:31 PM
--- NOTE | 2023-02-10 14:55 | N.ONRD TS_ITS ---
Radiation OncologyTreatment Summary Patient Name: Sameer Forrester Date of : 1945 Date of Service: 02/10/2023 Attending Physician: Joss Love M.D. Sameer Forrester has completed palliative radiotherapy for the metastatic renal cell carcinoma. 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 Thoracic metastatic disease was radiographically identified and confirmed following an 11R lymph node biopsy in October 2017. He was enrolled on Checkmate 9 trial. In January of 2022, he reported progressive back pain. A thoracic MRI identified a T12 lesion. A radiofrequency ablation with vertebral augmentation was performed for tissue diagnosis. Metastatic renal cell carcinoma was confirmed. A lumbar MRI scan obtained in November 2022 described a new enhancing lesion within the L2 vertebral body. He reported right thigh pain. A radiograph of the right femur ordered in November described an eccentric lytic lesion with cortical destruction in the mid diaphysis measuring 6.8 cm x 2.5 cm. An open reduction internal fixation was performed by Royer Jackson M.D. at [facility] on December 10, 2022. Bone and soft tissue submitted from the procedure was consistent with metastatic renal cell carcinoma. Daily radiotherapy was administered to the right femur between the dates January 19, 2023 through January 23, 2023. A prescribed dose of 20 Gy was delivered in 5 fractions encompassing 5 elapsed days. Radiotherapy was administered to the L2 vertebral body between the dates of February 02, 2023 through February 06, 2023. A prescribed dose of 20 Gy was delivered in 5 fractions encompassing 7 elapsed days. A right humerus and shoulder radiographs completed during a follow-up appointment with orthopedic oncology at [facility] on January 29, 2023 revealed interval enlargement of the lytic lesion within the right proximal humerus. Radiotherapy was administered on February 10, 2023. A prescribed dose of 8 Gy was delivered in one fraction encompassing 0 elapsed days. The right humerus was treated utilizing a 2-dimensional radiotherapy plan with an AP/PA portal field design with a [id number] treatment technique. The AP field utilized a 0??? gantry angle with a collimator angle of 322???. The field size measured 3.5 cm x 3.5 cm within the X-direction and 13 cm x 13 cm within the Y-direction. The SSD measured 96.2 cm with the field delivering 397 monitor units. Supplemental ports were designed with multi-leaf collimation that distributed 23 MU and 42 MU, respectively The PA port employed a gantry angle of 180??? and a collimator angle of 38???. The field size spanned 3.5 cm x 3.5 cm within the X-direction and 13 cm x 13 cm within the Y-direction. The SSD was 92.6 cm with the port administering 471 monitor units. An Auxiliary field with MLC was designed that apportioned 74 MU. All treatments were performed with the [employer] linear accelerator and an isocentric technique. The dose was calculated by Anisotropic Analytic Algorithm. Photon energies of 6 MV were prescribed with the plan normalized to deliver 100% of the prescription dose to 99% of the planning target volume. Signed by: Joss Love 02/10/2023 2:54:24 PM
== END 2023-03-11 23:59 | disposition home or self-care (01) ==
PROVIDERS: PCP Internal Medicine; Visit Provider Radiology Radiation Oncology
DX: Z51.0 Encounter for antineoplastic radiation therapy (principal); C64.1 Malignant neoplasm of right kidney, except renal pelvis; C79.51 Secondary malignant neoplasm of bone; Z87.891 Personal history of nicotine dependence
CPT/HCPCS: 77290; 77307; 77334; 77336; 77412; 77417; 99024